=== PATIENT | female | born 1995 | race Caucasian/White ===

== ENCOUNTER 2019-02-13 16:06 | Emergency (ER) | payer SELFPAY ==
[~2019-02-13] VITALS: Ht 162.6 cm; Wt 78.0 kg
[2019-02-13] MEDS ORDERED: KETOROLAC TROMETHAMINE 30 MG/ML VIAL IM ONE (16:45)
[2019-02-13 17:40] VITALS: BP 119/92
== END 2019-02-13 17:43 | disposition home or self-care (01) ==
LOC: EMS 16:07
DX: S40.022A Contusion of left upper arm, initial encounter (principal); F12.90 Cannabis use, unspecified, uncomplicated; F17.210 Nicotine dependence, cigarettes, uncomplicated; W51.XXXA Accidental striking against or bumped into by another person, initial encounter; Y93.66 Activity, soccer; Y92.89 Other specified places as the place of occurrence of the external cause; Y99.8 Other external cause status
CPT/HCPCS: 96372; 99283; 99406; J1885